=== PATIENT | female | born 1955 | race Caucasian/White ===

== ENCOUNTER 2019-03-04 10:55 | Day surgery (SDC) | payer BC ==
[~2019-03-04] VITALS: Ht 167.6 cm; Wt 72.4 kg
[2019-03-04] VITALS (11 sets, daily range): BP systolic 110–158; BP diastolic 62–88; PULSE 36–59; TEMP 97.1–98.1
[~2019-03-04 10:55] MED LIST: B6-5050 MG PO; CALCIUM + D 5001 TAB PO; FISH OIL1 POW; TYLENOL 325MG325 MG PO; VICODIN PO
[2019-03-04] MEDS ORDERED: GLUCOSAMINE 1000 (11:43)
--- NOTE | 2019-03-04 13:55 | NUR ---
1355-Patient arrived to [facility] [place] [facility] via cart and she is resting supine. She remains very drowsy although does respond to verbal stimuli and answer questions/follow commands. HR is SB in low 40's. She is pale/jaundiced and skin is cool. Warm blankets provided. Abdomen is soft and nontender to palpation. Bowel sounds are hypoactive. She denies any nausea at present. Reports discomfort to her back on the right side and this area is tender to palpation. Warm blanket placed to this area and pillows provided to assist with discomfort. Will medicate for pain as needed after heart rate increases. Her family remain in the waiting room and Dr. Dang is speaking with them.
--- NOTE | 2019-03-04 14:10 | NUR ---
1410-Dr. Dang is now at bedside and speaking with patient regarding procedure findings; however, she remains very drowsy so has minimal questions or responses at this time. HR remains SB and is 36. 1415-Order received to administer robinul 0.2mg IV at this time for bradycardia. Given at this time. Will monitor for effectiveness.
--- NOTE | 2019-03-04 14:20 | NUR ---
1420-Patient continues resting and remains drowsy. Her family have left and will arrive later to pick her up at time of discharge.
--- NOTE | 2019-03-04 14:30 | NUR ---
1430-HR is improving to higher 40's and low 50's, remains SB on telemetry. She denies having any nausea. Reports mild pain to same area on her back-right side, although reports this is improving. Declined pain medication at this time. Additional warm blanket applied.
--- NOTE | 2019-03-04 14:55 | NUR ---
1455-Patient continues resting comfortably. She remains drowsy, but arouses easily. Given ice chips per request. HR is SB in the 50's and is steady now. She denies feeling dizzy or light headed.
--- NOTE | 2019-03-04 15:10 | NUR ---
1510-Patient continues resting comfortably and is doing well. Vitals are stable. HR is SB in the mid to high 50's. No ectopy noted. She is tolerating ice chips without any N/V. Pain is minimal. Spoke with Dr. Dang and he agrees to send her to room 322 and recheck status at 1800 for possible discharge home this evening. Report called to ANKIT Wiley on surgical unit. Called patient's family and updated them on her location and plan. 1520-Given additional ice chips and taken via cart up to room 322. Belongings and chart with patient. 1530-Assisted patient with stepping from cart to the bed and she did well. Connected back to monitor and vitals remain stable. ANKIT Wiley at bedside to receive patient. Belongings left with her. Call heredia in reach.
--- NOTE | 2019-03-04 16:32 | NUR ---
PT TO ROOM 322.-2 PER BED WITH REPORT FROM [facility] PACU. PT IS A/O X3, MILD NAUSEA REPORTED AND NEW ORDERS RECIEVED. VSS, PT INSTSRUCTED TO USE CALL LIGHT WHEN NEEDS SOMETHING , PT VERBALISED UNDERSTANDING.
--- NOTE | 2019-03-04 18:05 | NUR ---
reviewed discharge instructions with patient.
--- NOTE | 2019-03-04 18:05 | NUR ---
updated and ok to discharge.
--- NOTE | 2019-03-04 18:06 | NUR ---
Pt will discharge when ride arrives.
--- NOTE | 2019-03-04 20:00 | NUR ---
Patient discharged via ambulatory status to private car. Personal belongings sent with patient as well as discharge instructions.
== END 2019-03-04 20:00 | disposition home or self-care (01) ==
LOC: SDCO 10:55 → SURG 16:13 → SDCO 20:00
DX: C24.0 Malignant neoplasm of extrahepatic bile duct (principal); K83.1 Obstruction of bile duct; K86.89 Other specified diseases of pancreas; K83.8 Other specified diseases of biliary tract; Z88.2 Allergy status to sulfonamides; Z88.1 Allergy status to other antibiotic agents; M16.12 Unilateral primary osteoarthritis, left hip
CPT/HCPCS: OP; C1769; C2625; J2405; J2704; J3010; J7120

== ENCOUNTER 2019-04-08 07:06 | Day surgery (SDC) | payer BC ==
[~2019-04-08] VITALS: Ht 167.6 cm; Wt 70.3 kg
[~2019-04-08 07:06] MED LIST changes: +GLUCOSAMINE 1000 PO
[2019-04-08 07:36] VITALS: BP 131/72; PULSE 60; TEMP 97.6
[2019-04-08] MEDS ORDERED: VITAMIN B-6100 MG PO (07:48)
--- NOTE | 2019-04-08 07:49 | NUR ---
TO RM 8 AT 0712 CALL LIGHT IN REACH AT BEDSIDE.
[2019-04-08 09:27] VITALS: BP 93/56; PULSE 66; TEMP 97.3
--- NOTE | 2019-04-08 09:27 | NUR ---
TO RM 8 PER CART FROM OR. DROWSY AND ANSWERS QUESTIONS AND FALLS BACK TO SLEEP. DRESSINGS CLEAN DRY INTACT. DENIES PAIN OR DISCOMFORT. DENIES N/V. O2 SAT 97% ON ROOM AIR DR ZHU TALKED TO PATIENTS .
[2019-04-08 09:30] VITALS: BP 97/61; PULSE 66
--- NOTE | 2019-04-08 09:30 | NUR ---
CONTINUES TO SLEEP QUIETLY
[2019-04-08] MEDS ORDERED: NORCO 325 MG-51 TAB PO (09:31)
[2019-04-08 09:45] VITALS: BP 123/75; PULSE 60
--- NOTE | 2019-04-08 09:45 | NUR ---
PATIENT MORE AWAKE AND TALKING TO . RECEIVED WATER AND TOLERATING WELL.
[2019-04-08 10:00] VITALS: BP 104/62; PULSE 59
--- NOTE | 2019-04-08 10:00 | NUR ---
RECEIVED COFFEE AND TAKING SIPS
[2019-04-08 10:15] VITALS: BP 108/72; PULSE 55
--- NOTE | 2019-04-08 10:15 | NUR ---
RECEIVED NEDA. PUDDING AND ATE 100%.
--- NOTE | 2019-04-08 10:55 | NUR ---
AMBULATED TO BATHROOM. UPON RETURNING TO , PATIENT C/O INCREASED PAIN /10. RECEIVED NORCO 5MG 1 TAB
--- NOTE | 2019-04-08 11:05 | NUR ---
RECEIVED DISCHARGE INSTRUCTIONS AND VERBALIZED UNDERSTANDING DISONTINUED IV AND INT- CATHETER INTACT.
--- NOTE | 2019-04-08 11:28 | NUR ---
PATIENT STATED THE PAIN MEDICINE HELPED DISCHARGED PER WC BY NURSING STAFF TO PRIVATE CAR IN CARE OF - JOLIE
== END 2019-04-08 11:31 | disposition home or self-care (01) ==
LOC: SDCO 07:06
DX: C25.0 Malignant neoplasm of head of pancreas (principal); M19.90 Unspecified osteoarthritis, unspecified site; Z80.3 Family history of malignant neoplasm of breast; Z80.0 Family history of malignant neoplasm of digestive organs; Z80.49 Family history of malignant neoplasm of other genital organs; Z80.8 Family history of malignant neoplasm of other organs or systems; Z88.2 Allergy status to sulfonamides; Z88.1 Allergy status to other antibiotic agents; M16.12 Unilateral primary osteoarthritis, left hip
CPT/HCPCS: C1788; J0690; J1100; J1644; J2250; J2405; J2704; J3010; J7120